=== PATIENT | female | born 1955 | race Caucasian/White ===

== ENCOUNTER 2016-10-12 14:17 | Inpatient (IN) | payer MEDICARE ==
[~2016-10-12] VITALS: Ht 162.6 cm; Wt 43.1 kg
--- NOTE | 2016-10-12 14:04 | NUR ---
RECIEVED ON FLOOR/WC ADMITTED FROM HOME TO ROOM 1115.ORIENTED TO SURROUNDINGS.CL IN REACH.EXPECTATIONS TP RETURN HOME WITH ABILITY AND STREGTH TO STAND UPRIGHT AND WALK INDEPENDENTLY.
[2016-10-12] MEDS ORDERED: LISINOPRIL10 MG PO (14:46)
[2016-10-12] MEDS ORDERED: REMERON30 MG PO (14:46)
[2016-10-12] MEDS ORDERED: SYNTHROID50 MCG PO (14:47)
[2016-10-12] MEDS ORDERED: ATIVAN0.5 MG (14:47)
[2016-10-12] MEDS ORDERED: ZOCOR20 MG PO (14:48)
[2016-10-12] MEDS ORDERED: NEXIUM40 MG PO (14:48)
[2016-10-12] MEDS ORDERED: GAS-X125 M1 PO (14:49)
[2016-10-12] MEDS ORDERED: MULTIPLE VITAMI1 TA1 PO (14:50)
[2016-10-12] MEDS ORDERED: VITAMIN C250 MG PO (14:50)
[2016-10-12] MEDS ORDERED: CRANBERRY 400 M1 TA1 PO (14:50)
[2016-10-12] MEDS ORDERED: ACETAMINOPHEN500 M1 PO (14:51)
[2016-10-12] MEDS ORDERED: ZYBAN150 MG PO (15:02)
[2016-10-12] MEDS ORDERED: MOBIC7.5 MG PO (15:05)
[2016-10-12] MEDS ORDERED: CYCLOBENZAPRINE10 MG PO (15:05)
[2016-10-12] MEDS ORDERED: ULTRAM50 MG PO (15:06)
[2016-10-12] MEDS ORDERED: EFFEXOR50 MG (15:07)
[2016-10-12 15:57] VITALS: BP 120/70; BMI 16.4
--- NOTE | 2016-10-12 19:35 | NUR ---
PT NOTED RESTING IN BED WATCHING TV. ALERT AND ORIENTED X 3. SHE DENIES ANY PAIN OR DISCOMFORT AT THIS TIME, BUT STATES SHE IS JUST VERY WEAK ALL OVER. PT ASSISTED TO THE BATHROOM AT THIS TIME, USING RW WITH CGA. PT AMBULATED WITH LEGS SLIGHTLY BOWED AND A SLOW GAIT, BUT DID SO WITHOUT ANY ASSIST. SHE IS VERY UNSURE OF HERSELF, AND STATED SEVERAL TIMES, "PLEASE DONT LEAVE ME, MAKE SURE YOU HOLD ME TIGHT SO I DONT FALL." I KEPT MY HAND ON HER BACK TO REASSURE HER, AND SHE AMBULATED WITHOUT ASSIST. ASSISTED BACK TO BED. SR'S ARE UP X 2 IN BED. CALL LIGHT AND BEDSIDE TABLE ARE WITHIN EASY REACH.
[2016-10-12 20:02] VITALS: BP 107/63
--- NOTE | 2016-10-12 21:29 | NUR ---
PT IS RESTING IN BED WATCHING TV. NO NEEDS VOICED.
--- NOTE | 2016-10-12 23:24 | NUR ---
RESTING QUIETLY IN BED WITH EYES CLOSED. RESPS ARE EVEN AND UNLABORED. NO ACUTE DISTRESS NOTED.
--- NOTE | 2016-10-13 01:22 | NUR ---
RESTING IN BED WITH EYES CLOSED. NO S/S OF DISTRESS OBSERVED. HOB ELEVATED. CALL LIGHT AND OVERBED TABLE IN REACH.
--- NOTE | 2016-10-13 05:50 | NUR ---
PT ASSISTED TO THE BATHROOM WITH CGA. NO FURTHER NEEDS VOICED.
[2016-10-13 06:42] LABS: BASOPHILS 0.3 % (0-2); EOSINOPHILS 1.7 % (0-7); HEMATOCRIT 34.5 % (36.0-48.0); HEMOGLOBIN 10.8 g/dL (12-16); IMMATURE GRANULOCYTES 0.3 % (0-5); LYMPHOCYTES 21.5 % (15-50); MCH 32.3 pg (26.0-34.0); MCHC 31.3 g/dL (31.0-37.0); MCV 103.3 fL (80.0-100.0); MEAN PLATELET VOLUME 9.7 fL (7.4-10.4); NEUTROPHILS 67.2 % (40-80); PLATELET COUNT 342 10x3/uL (130-400); RBC 3.34 10x6/uL (4.00-5.40); RDW 12.6 % (11.5-14.5); WBC 5.9 10x3/uL (4.8-10.8)
[2016-10-13 07:06] LABS: CALC OSMOLALITY 282 mosm/kg (275-300); CALCIUM 8.8 mg/dL (8.5-10.1); CARBON DIOXIDE 33.6 mmol/L (21.0-32.0); CHLORIDE - SERUM 102 mmol/L (98-107); CREATININE - SERUM 0.7 mg/dL (0.6-1.3); GLUCOSE 115 mg/dL (74-106); POTASSIUM - SERUM 3.8 mmol/L (3.5-5.1); SODIUM 142 mmol/L (136-145); UREA NITROGEN 9 mg/dL (7-18); eGFR NON AFRICAN AMERICAN 90 mL/min (90-120)
--- NOTE | 2016-10-13 08:34 | NUR ---
PT AM MEDS ADMINISTERED. PT ASSISTED TO BR WITH STANDBY ASSIST. PT BACK IN BED AND DENIES FURTHER NEEDS. WCTM.
[2016-10-13 09:05] VITALS: BP 129/81
[2016-10-13 10:46] VITALS: Ht 162.6 cm; Wt 43.1 kg
--- NOTE | 2016-10-13 12:10 | NUR ---
PT EATING LUNCH, DENIES NEEDS. WCTM.
--- NOTE | 2016-10-13 15:25 | NUR ---
PT REQ AND REC'D PRN TYLENOL FOR HEADACHE. WCTM.
--- NOTE | 2016-10-13 19:44 | NUR ---
RECIEVED LYING IN BED WITH EYES OPEN AND TV ON. PLEASANT AND COOPERATIVE. VERY TALKATIVE. CALLL LIGHT AND OVERBED TABLE IN REACH.
[2016-10-13 20:13] VITALS: BP 113/60
--- NOTE | 2016-10-13 21:07 | NUR ---
RESTING IN BED WATCHING TV. PLEASANT ANDD TALKATIVE. DENIES ANY PAIN. CALL LIGHT AND OVERBED TABLE IN REACH.
--- NOTE | 2016-10-14 02:18 | NUR ---
RESTING IN BED WITH EYES CLOSED. NO S/S OF DISTRESS OBSERVED. CALL LIGHT AND OVERBED TABLE IN REACH.
[2016-10-14 09:09] VITALS: BP 125/73
--- NOTE | 2016-10-14 09:35 | NUR ---
PT AM MEDS ADMINISTERED. PT DENIES NEEDS. WCTM.
--- NOTE | 2016-10-14 12:15 | NUR ---
PT EATING LUNCH, DENIES NEEDS. WCTM.
--- NOTE | 2016-10-14 16:42 | NUR ---
PT RESTING IN BED, DENIES NEEDS. WCTM.
[2016-10-14 19:27] VITALS: BP 114/62
--- NOTE | 2016-10-14 19:27 | NUR ---
ASSISTED TO TOILET WITH SUPERVISION ONLY. COMPLAINS OF WEAKNESS AND STIFFNESS IN HER LEGS. AMBULTED WITH A WALKER. DENIES ANY PAIN. CALL LIGHT AND OVERBED TABLE IN REACH.
[2016-10-14 20:27] VITALS: BP 114/62
--- NOTE | 2016-10-14 21:20 | NUR ---
RESTING IN BED WITH EYES OPEN AND TV ON. DENIES ANY PAIN. ASSISTED TO TOILET. REQUIRES SUPERVISION. CALL LIGHT AND OVERBED TABLE IN REACH.
--- NOTE | 2016-10-15 01:03 | NUR ---
RESTING IN BED WITH EYES CLOSSED. HOB ELEVATED. NO S/S OF DISTRESS OBSERVED. CALL LIGHT IN REACH.
--- NOTE | 2016-10-15 07:55 | NUR ---
IN THERAPY GYM WITH PHYSICAL THERAPIST ROGERIO. OFFERS NO COMPLAINTS. WILL CONTINUE TO MONITOR
[2016-10-15 08:00] VITALS: BP 112/61
--- NOTE | 2016-10-15 10:42 | NUR ---
ASSISTED TO RESTROOM AND BACK TO BED WITH STANDBY ASSIST. CALL LIGHT IN REACH. BED ALARM ON
--- NOTE | 2016-10-15 10:45 | NUR ---
SITTING UP ON SIDE OF BED.CL IN REACH.
--- NOTE | 2016-10-15 14:56 | NUR ---
ASSISTED WITH SHOWER MINIMAL ASSIST. CHANGED LINEN AND ASSISTED PT BACK TO BED. OFFERS NO COMPLAINTS. CALL LIGHT IN REACH
--- NOTE | 2016-10-15 16:07 | NUR ---
ASSISTED TO RESTROOM AND BACK TO BED WITH STANDBY ASSIST. NO CONCERNS VOICED. CALL LIGHT IN REACH
--- NOTE | 2016-10-15 19:20 | NUR ---
SIT UP IN BED AND WATCH TV.
--- NOTE | 2016-10-15 19:50 | NUR ---
PT. IN BED WITH HOB UP FOR COMFORT AND IS WATCHING TV. NO VOICED NEEDS AND HER CALL LIGHT IS WITHIN REACH.
[2016-10-15 23:38] VITALS: BP 115/62
--- NOTE | 2016-10-16 01:47 | NUR ---
REST QUIETLY IN BED, CALL LIGHT WITHIN REACH.
--- NOTE | 2016-10-16 05:15 | NUR ---
SIT UP IN BED AND DRINK TEA.
--- NOTE | 2016-10-16 07:50 | NUR ---
ASSISTED TO RESTROOM AND BACK TO SIDE OF BED. NO S/SX OF DISTRESS. DENIES ANY PAIN. CALL LIGHT IN REACH. WILL CONTINUE TO MONITOR
[2016-10-16 08:00] VITALS: BP 93/53
--- NOTE | 2016-10-16 09:32 | NUR ---
ASSISTED TO RESTROOM AND BACK TO SIDE OF BED WITH STANDBY ASSIST. OFFERS NO COMPLAINTS. CALL LIGHT IN REACH. WILL CONTINUE TO MONITOR
--- NOTE | 2016-10-16 13:43 | NUR ---
SITTING UP ON SIDE OF BED COLORING. OFFERS NO COMPLAINTS. CALL LIGHT WITHIN REACH.
--- NOTE | 2016-10-16 15:40 | NUR ---
SITTING UP ON SIDE OF BED. OFFERS NO COMPLAINTS. CALL LIGHT IN REACH
--- NOTE | 2016-10-16 17:12 | NUR ---
RESTING QUIETLY IN BED.CL IN REACH.
--- NOTE | 2016-10-16 19:29 | NUR ---
INTRODUCED SELF TO PT, PT STATES BP LOW AT TIME, INSTRUCTED PT TO CALL FOR ASSISTANCE WHEN GETTING OUT OF BED, WILL CONTINUE TO MONITOR, CALL LIGHT WITHIN REACH.
--- NOTE | 2016-10-16 19:46 | NUR ---
PT. SITTING UP IN BED AND IS WATCHING TV. NO VOICED NEEDS AND HER CALL LIGHT IS WITHIN REACH.
[2016-10-16 20:10] VITALS: BP 134/66
--- NOTE | 2016-10-16 20:20 | NUR ---
NIGHT MEDICATION GIVEN, PT TOLERATED WELL, ASSISTED PT TO BATHROOM AND BACK TO BED WITH MINIMAL ASSISTANCE, WILL CONTINUE TO MONITOR, CALL LIGHT WITHIN REACH.
--- NOTE | 2016-10-16 22:33 | NUR ---
PT UP IN BED WATCHING TV, PT STATES WOULD LIKE HOT TEA AND A FRESH GLASS OF WATER, BED IN LOW POSITION, SIDE RAILS UP X'S 2, CALL LIGHT WITHIN REACH, INSTRUCTED PT TO USE CALL LIGHT FOR ASSISTANCE. WILL CONTINUE TO MONITOR.
--- NOTE | 2016-10-17 00:32 | NUR ---
PT RESTING QUIETLY IN BED, RESPIRATIONS EVEN, BED IN LOW POSITION, SIDE RAILS UP X'S 2, CALL LIGHT WITHIN REACH, WILL CONTINUE TO MONITOR.
--- NOTE | 2016-10-17 02:04 | NUR ---
PT RESTING QUIETLY, RESPIRATIONS EVEN, BED IN LOW POSITION, SIDE RAILS UP X'S 2, CALL LIGHT WITHIN REACH, WILL CONTINUE TO MONITOR.
--- NOTE | 2016-10-17 03:00 | NUR ---
ASSISTED PT TO BATHROOM AND BACK TO BED WITH MINIMAL, PT STATES NO NEW NEEDS AT THIS TIME, WILL CONTINUE TO MONITOR, CALL LIGHT WITHIN REACH.
--- NOTE | 2016-10-17 05:39 | NUR ---
MORNING MEDICATION GIVEN, PT CHANGED INTO [facility] FOR THERAPY WITH MINIMAL ASSISTANCE, WILL CONTINUE TO MONITOR, CALL LIGHT WITHIN REACH.
[2016-10-17 06:05] LABS: BASOPHILS 0.6 % (0-2); HEMATOCRIT 33.9 % (36.0-48.0); HEMOGLOBIN 10.5 g/dL (12-16); LYMPHOCYTES 20.2 % (15-50); MCV 103.4 fL (80.0-100.0); MEAN PLATELET VOLUME 9.9 fL (7.4-10.4); MONOCYTES 12.9 % (2-11); NEUTROPHILS 64.3 % (40-80); PLATELET COUNT 331 10x3/uL (130-400); RBC 3.28 10x6/uL (4.00-5.40); RDW 12.6 % (11.5-14.5); WBC 4.9 10x3/uL (4.8-10.8)
[2016-10-17 06:22] LABS: CALC OSMOLALITY 287 mosm/kg (275-300); CALCIUM 9.3 mg/dL (8.5-10.1); CARBON DIOXIDE 30.6 mmol/L (21.0-32.0); CHLORIDE - SERUM 105 mmol/L (98-107); CREATININE - SERUM 0.7 mg/dL (0.6-1.3); GLUCOSE 122 mg/dL (74-106); POTASSIUM - SERUM 4.6 mmol/L (3.5-5.1); SODIUM 143 mmol/L (136-145); UREA NITROGEN 18 mg/dL (7-18); eGFR NON AFRICAN AMERICAN 90 mL/min (90-120)
[2016-10-17 09:05] VITALS: BP 105/61
--- NOTE | 2016-10-17 09:18 | NUR ---
PT AM MEDS ADMINISTERED. PT DENEIS NEEDS AT THIS TIME. BED LOW. C OWEN REACH. WCTM.
--- NOTE | 2016-10-17 11:22 | NUR ---
PT IN THERAPY, TOLERATING WELL. DENIES NEEDS. WCTM.
--- NOTE | 2016-10-17 19:15 | NUR ---
PT IS RESTING IN BED WITH EYES OPEN. WATCHING TV. ALERT AND ORIENTED X 4. DENIES ANY ACUTE DISCOMFORT AT THIS TIME. SHE STATES HER FEED ARE SWOLLEN AND ACHE A BIT WHEN SHE WALKS. 2 + EDEMA NOTED IN BELKIS FEET. PT ENCOURAGED TO KEEP THEM ELEVATED UP ON A PILLOW. VERBAL UNDERSTANDING VOICED. ASSISTED TO THE BATHROOM AT THIS TIME. CGA USED WITH AMBULATION WITH A RW. SBA FOR TOILETING.SR'S ARE UP X 2 IN BED. CALL LIGHT AND BEDSIDE TABLE ARE WITHIN EASY REACH.
[2016-10-17 20:00] VITALS: BP 109/58
--- NOTE | 2016-10-17 21:07 | NUR ---
PT IS RESTING IN BED WATCHING TV. NO NEEDS VOICED.
--- NOTE | 2016-10-18 00:10 | NUR ---
RESTING QUIETLY IN BED, EYES CLOSED.
--- NOTE | 2016-10-18 01:12 | NUR ---
RESTING QUIETLY IN BED WITH EYES CLOSED. RESPS ARE EVEN AND UNLABORED. NO ACUTE DISTRESS NOTED.
--- NOTE | 2016-10-18 04:48 | NUR ---
RESTING IN BED WITH EYES CLOSED.
[2016-10-18 07:00] VITALS: BP 117/67
--- NOTE | 2016-10-18 08:30 | NUR ---
PT AM MEDS ADMINISTERED. PRN TYLENOL GIVEN FOR 8/10 GENERALIZED PAIN. PT DENIES NEEDS AT THIS TIME. WCTM. BED LOW. CL IN REACH.
--- NOTE | 2016-10-18 15:13 | NUR ---
PT C/O OF INDEGESTION. PRN TUMS GIVEN. WCTM.
--- NOTE | 2016-10-18 17:44 | NUR ---
PT EATING DINNER, DENIES NEEDS. WCTM.
--- NOTE | 2016-10-18 19:30 | NUR ---
PT IS RESTING IN BED WATCHING TV. ALERT AND ORIENTED X 3. DENIES ACUTE DISCOMFORT AT THIS TIME. VSS. SR'S ARE UP X 2 IN BED. CALL LIGHT AND BEDSIDE TABLE ARE WITHIN EASY REACH.
[2016-10-18 20:00] VITALS: BP 102/60
--- NOTE | 2016-10-18 21:04 | NUR ---
PT IS RESTING QUIETLY IN BED WITH EYES CLOSED. RESPS ARE EVEN AND UNLABORED. NO ACUTE DISTRESS NOTED.
--- NOTE | 2016-10-19 00:01 | NUR ---
RESTING IN BED WITH EYES CLOSED. ASSISTED TO THE BATHROOM PRN.
--- NOTE | 2016-10-19 02:23 | NUR ---
RESTING IN BED WITH EYES CLOSED. NO S/S OF DISTRESS OBSERVED. CALL LIGHT IN REACH.
--- NOTE | 2016-10-19 05:56 | NUR ---
PT RESTING IN BED DRINIING A CUP OF TEA. NO NEEDS VOICED.
[2016-10-19 08:01] VITALS: BP 121/64
--- NOTE | 2016-10-19 10:31 | NUR ---
Nutrition Follow Up: Pt was in therapy at the time of RD visit. Interview deferred. Pt is eating 94% meal avg on a bland diet. She is receiving Ensure TID. +BM 10/16/16. Meds noted including Remeron. Labs reviewed. No new wt. Rec continue current diet, supplement regimen. RD following.
--- NOTE | 2016-10-19 12:15 | NUR ---
PT EATING LUNCH, DENIES NEEDS. WCTM.
--- NOTE | 2016-10-19 15:12 | NUR ---
PT RESTING IN BED TALKING ON PHONE, SHERINE NEEDS. WCTM.
[2016-10-19 19:00] VITALS: BP 93/53
--- NOTE | 2016-10-19 19:15 | NUR ---
PT IN BED WITH HOB UP FOR COMFORT. WATCHING TV. ALERT & ORIENTED. STAND BY ASSIST. NO O2. NO IV. BED IN LOWEST POSITION AND CALL LIGHT WITHIN REACH.
--- NOTE | 2016-10-19 19:42 | NUR ---
PT. IN BED WITH HOB UP FOR COMFORT WITH EYES CLOSED AND RESP. EVEN. CALL LIGHT WITHIN REACH.
--- NOTE | 2016-10-19 23:40 | NUR ---
PT LYING IN BED. EYES CLOSED. CHEST RISING AND FALLING. BED IN LOWEST POSITION AND CALL LIGHT WITHIN REACH.
--- NOTE | 2016-10-20 03:40 | NUR ---
PT LYING IN BED. EYES CLOSED. RESP. EVEN. BED IN LOWEST POSITION AND CALL LIGHT WITHIN REACH.
--- NOTE | 2016-10-20 05:46 | NUR ---
PT LYING IN BED. EYES CLOSED. RESP. EVEN. BED IN LOWEST POSITION AND CALL LIGHT WITHIN REACH.
--- NOTE | 2016-10-20 06:38 | NUR ---
PT SITTING ON SIDE OF BED. WATCHING TV AND DRINKING HOT TEA. CALL LIGHT WITHIN REACH.
--- NOTE | 2016-10-20 07:36 | NUR ---
PT RESTING ON SIDE OF BED WITH EYES OPEN CALL LIGHT IN REACH WILL MONITER
--- NOTE | 2016-10-20 08:00 | NUR ---
SITTING ON SIDE OF BED.CL IN REACH.DENIES NEEDS.
--- NOTE | 2016-10-20 08:29 | RHP ---
PATIENT: JUDY TEJADA MEDICAL RECORD: [id number] ACCOUNT: [id number] LOCATION:[place] [id number] : 55 ADMISSION DATE: 10/12/16 REHABILITATION HISTORY AND PHYSICAL EXAMINATION POST ADMISSION PHYSICIAN EXAMINATION Post-Admission Physical Exam for the Rehabilitation DATE OF ADMISSION: 10/12/2016 ADMITTING DIAGNOSIS: Disuse myopathy HISTORY OF PRESENT ILLNESS: The patient is a 61-year-old female patient admitted with disuse myopathy. She has a long history of anorexia nervosa. She went to Dr. Davis after visiting the Emergency Room at [facility]. She complained of muscle weakness, paresthesias, proximal weakness and pain in her legs and back with onset beginning approximately a week prior to admission. She weighs 79 pounds and has had a 16-pound weight loss since July. She says she has gotten so weak, she cannot care for herself. She has a caregiver that comes in 3 days a week to do housework, food prep, shopping, and assistance with her ADLs. Previously, she is ambulatory without device. She was able to live alone and perform her ADLs without expanded duty dental assistant. She wants to regain her strength and be able to return home and live independently. COMORBIDITIES: Include anorexia nervosa, paresthesias, BMI less than 19, iron deficient anemia, muscle weakness, myalgias, debility, hyperlipidemia, anemia, unintentional weight loss, osteoporosis, anxiety, depression, and history of falls and tobacco use. PAST MEDICAL HISTORY: Significant for anorexia nervosa, myalgias, debility, hyperlipidemia, unintentional weight loss, osteoporosis, anxiety, depression and falls. PAST SURGICAL HISTORY: Please see previous charts. ALLERGIES: PENICILLIN. CURRENT MEDICATIONS: Include multivitamin daily, Protonix 40 mg daily, Synthroid 50 mcg daily, Zestril 10 mg daily, Ativan 0.5 mg b.i.d., tramadol 100 mg q.6 hours p.r.n., Wellbutrin 150 mg b.i.d., Tylenol 500 mg b.i.d. p.r.n. She is on Phazyme as needed, Zocor 20 mg q.h.s., Remeron 30 mg q.h.s. She is on a Nicoderm patch at this time, and polyethylene glycol 17 grams in 8 once of water daily. HABITS: Does have a history of tobacco use. No alcohol use. FAMILY HISTORY: Noncontributory. SOCIAL HISTORY: The patient hopes to return back home and get back to her prior level of functioning or better if possible. REVIEW OF SYSTEMS: GENERAL: Does complain of weakness and fatigue. HEENT: Denies cold, cough, or congestion. CARDIOVASCULAR: Denies chest pain. HISTORY AND PHYSICAL [id number] LONG,JUDY PHYSICAL EXAMINATION: VITAL SIGNS: Stable, afebrile. GENERAL: A thin female, in no acute distress upon exam. HEENT: Normocephalic and atraumatic. Mucosa moist. NECK: Supple. No lymphadenopathy. LUNGS: Clear at this time. HEART: Regular rate and rhythm. ABDOMEN: Benign. EXTREMITIES: No clubbing, cyanosis or edema. NEUROLOGIC: Intact. LABORATORY DATA: Her white count is 5.9, H&H of 10 and 34 and platelet count was noted to be 342. Sodium 142, potassium 3.4, BUN and creatinine of 9 and 0.7, and blood sugar is noted to be 115. ASSESSMENT: This is a 61-year-old female patient admitted to rehab with a working diagnosis of a disuse myopathy. The patient has potential to make improvement. We instituted the following multidisciplinary therapies including to, but not limited to physical, occupational, respiratory, speech, nutritional services, prosthetics and orthotics. Given her complex condition and risk for more complications, rehabilitation services cannot be provided at a lower level of care such as a custodial facility. PLAN: 1. Admit to [facility] rehab for intensive inpatient therapy to include the following disciplines: A. Physical therapy to improve gait, all transfer skills and bed mobility to a modified independent level. B. Occupational therapy to improve activities of daily living to a modified independent level. C. Case management to assist with discharge planning and placement options. D. Nutrition to assist with nutritional needs. E. Rehabilitation nursing to assist in monitoring the patient's underlying medical conditions and to assist with any type of bowel or bladder management. 2. The patient's current medication and medical care will be continued. 3. The patient will be placed on standard fall precautions. 4. The patient's estimated length of stay is approximately 7-10 days. 5. Discuss this patient during care team staff meeting this week. TRANSINT:[id number] Voice Confirmation ID: [id number] DOCUMENT ID: [id number] CHARLIE notes whether there has been none or any medical/functional change since admission: - No change since prescreen. CHARLIE attests patient continues to be appropriate for IRF: - Continues to be appropriate. HISTORY AND PHYSICAL [id number] JUDY TEJADA SCOTT MD at 0829 CC: [id number] DICTATION DATE: 10/13/16 0904 MERCANTILE AGENT: 10/13/16 1012 ADM IN [place] [id number] [place] [address]
--- NOTE | 2016-10-20 14:57 | NUR ---
PT UP IN THERAPY GYM TOLERATING WELL WILL MONITER
--- NOTE | 2016-10-20 16:04 | NUR ---
QUIQUE FAXED TO [facility] FOR A ROLLING WALKER FOR HOME USE
--- NOTE | 2016-10-20 19:55 | NUR ---
PT. UP TO BR TO URINATE. PT. BACK TO BED AND SITTING ON THE SIDE OF HER BED. NO VOICED NEEDS AT THIS TIME, BUT PT. STATED SHE WOULD LIKE HER TYLENOL WITH HER NIGHT TIME MEDS TONIGHT. ASSESSMENT COMPLETED. PT. POSITIONED SELF BACK INTO BED AND STATED SHE WAS GOING HOME TOMORROW. CALL LIGHT WITHIN REACH.
[2016-10-20 20:15] VITALS: BP 114/66
--- NOTE | 2016-10-20 23:28 | NUR ---
PT. IN BED WITH HOB UP FOR COMFORT WITH EYES CLOSED AND RESP. EVEN. CALL LIGHT WITHIN REACH.
--- NOTE | 2016-10-21 03:08 | NUR ---
PT. IN BED LYING ON HER RIGHT SIDE WITH EYES CLOSED AND RESP. EVEN. CALL LIGHT WITHIN REACH.
--- NOTE | 2016-10-21 07:50 | NUR ---
RESTING QUIETLY IN BED. NO S/S DISTRESS OR NEEDS. CALL LIGHT IN REACH
[2016-10-21 08:15] VITALS: BP 112/64
--- NOTE | 2016-10-21 10:26 | NUR ---
PATIENT DISCHARGING HOME TODAY. [facility] WILL FOLLOW WITH PATIENT AT HOME. [facility] DELIVERED A ROLLING WALKER. DR. DOAN 10/31/16 @ 11:30. PATIENT CHOICE FORM FOR HOME HEALTH AND FM FORM SIGNED, EXPLAINED AND FILED IN CHART. ORDERS HAVE BEEN FAXED WITH CONFORMATION RECIEVED.
--- NOTE | 2016-10-21 14:20 | NUR ---
PT DISCHARGED TO HOME VIA WHEELCHAIR WITH SISTER PT DISCHARGE MEDS AND SUMMARY REVIEWED WITH THE PT WITHOUT QUESTIONS ALL MEDS CALLED TO [facility]
--- NOTE | 2016-10-21 15:37 | NUR ---
PT RESTING IN BED WITH EYES OPEN CALL LIGHT IN REACH WILL MONITER
== END 2016-10-21 15:51 | disposition home health service (06) | DRG 92 ==
LOC: D.REHAB 14:17
PROVIDERS: ADMIT Emergency Medicine
DX: G72.89 Other specified myopathies (principal); F50.00 Anorexia nervosa, unspecified; Z68.1 Body mass index [BMI] 19.9 or less, adult; R20.9 Unspecified disturbances of skin sensation; D50.9 Iron deficiency anemia, unspecified; M79.1 Myalgia; R53.81 Other malaise; E78.5 Hyperlipidemia, unspecified; M81.0 Age-related osteoporosis without current pathological fracture; F41.8 Other specified anxiety disorders; Z91.81 History of falling; E03.9 Hypothyroidism, unspecified; I10 Essential (primary) hypertension; J44.9 Chronic obstructive pulmonary disease, unspecified; F17.200 Nicotine dependence, unspecified, uncomplicated